=== PATIENT | female | born 1940 | race Caucasian/White ===

== ENCOUNTER 2017-01-24 14:34 | Emergency (ER) | payer OTHER, MEDICARE ==
[~2017-01-24] VITALS: Ht 180.3 cm; Wt 106.6 kg
[~2017-01-24 14:34] MED LIST: ACETAMINOPHEN-H1 TA2 PO; AMPICILLIN2 GM IV; ASPIRIN PO; BISACODYL5 M1 PO; COUMADIN2.5 M1 PO; COUMADIN5 M2 PO; CYANOCOBAL1000 MCG/2 IM; CYCLOBENZAPRINE5 M2 PO; DOCUSATE SODIU100 MG PO; FIBER GUMMIES1 EACH PO; FLEXERIL 10MG T10 MG PO; FUROSEMIDE20 M1 PO; GABAPENTIN600 M1 PO; HAIR, SKIN & N1 EACH PO; HYDROCODONE/ACE1 TA1 PO; LEXAPRO10 M1 PO; LEXAPRO20 M1 PO; LIDODERM 5% PAT1 PAT EXT; LISINOPRIL-HCTZ 10-1 PO; LISINOPRIL10 M1 PO; LOPRESSOR 25MG25 MG PO; MIRALAX119 GM PO; MIRALAX17 GM PO; MULTIVITAMIN1 TAB PO; MYRBETRIQ50 MG PO; NITROSTAT0.4 MG PO; OMEGA 3-6-9 11200 MG PO; OMEPRAZOLE20 M3 PO; OXYCODONE-ACETAMINOP PO; OXYCODONE5 M1 PO; PERCOCET 5-3251 EACH PO; PRAVACHOL40 M1 PO; PRAVASTATIN SOD40 MG PO; SENNA-TIME S T1 EACH PO; SYMBICORT 16010.2 GM INH; TOPROL XL25 M1 PO; TRAMADOL HCL50 M1 PO; TROSPIUM CHLORI20 M1 PO; ULTRAM50 M1 PO; VANCOMYCIN HC1000 MG IV; VITAMIN C1000 M2 PO; VITAMIN C500 M3 PO; [UNRECOGNIZED DRUG - OTHER] PO
--- NOTE | 2017-01-24 15:50 | ED MVC/FALL/TRAUMA COMPLAINT ---
History of Present Illness General Chief Complaint: Fall Stated Complaint: TRIP AND FALL, HIT HEAD, -LOC, +BLOOD THINNERS Source: patient Exam Limitations: no limitations Vital Signs & Intake/Output Vital Signs & Intake/Output Vital Signs Date Time Temp Pulse Resp B/P Pulse O2 O2 Flow FiO2 Ox Delivery Rate 01/24 1812 97.2 54 18 138/68 97 Room Air 01/24 1656 97.0 55 18 149/70 95 Room Air 01/24 1447 96.6 52 16 112/69 95 Room Air Allergies Coded Allergies: cetirizine (PER PT HAD A MIGRAINE 06/09/16) hydromorphone (DOUBLE VISION 06/09/16) Reconcile Medications Ascorbic Acid (Vitamin C) 1,000 MG TAB.CHEW 1 TAB PO DAILY SUPPLEMENT ( Reported) Budesonide/Formoterol Fumarate (Symbicort 160-4.5 Mcg Inhaler) 160 MCG-4.5 MCG/ ACTUATION HFA.AER.AD 2 PUF INH DAILY RESPIRATORY (Reported) Cyanocobalamin (Vitamin B-12) (Cyanocobalamin Injection) 1,000 MCG/ML VIAL 1 ML IM Q3-4W SUPPLEMENT (Reported) Escitalopram Oxalate (Lexapro) 20 MG TABLET 2 TAB PO DAILY DEPRESSION ( Reported) Ferrous Sulfate 325 MG (65 MG IRON) TABLET 1 TAB PO DAILY SUPPLEMENT ( Reported) Fish Oil/Borage/Flax/Om3,6,9#1 ([place] 3-6-9 1,200 MG Softgel) 1,200 MG CAPSULE 4 CAP PO QPM SUPPLEMENT (Reported) Furosemide 20 MG TABLET 1 TAB PO PRN DIURETIC (Reported) Gabapentin 300 MG CAPSULE 3 CAP PO QPM NERVE PAIN (Reported) Lisinopril 10 MG TABLET 1 TAB PO DAILY BP (Reported) Metoprolol Succ XL (Toprol XL) 25 MG TAB 1 TAB PO DAILY HEART (Reported) Multivitamin With Minerals (Hair, Skin & Nails) 1 EACH TABLET 1 TAB PO DAILY SUPPLEMENT (Reported) Omeprazole 20 MG TABLET.DR 1 TAB PO DAILY GI (Reported) Oxycodone HCl/Acetaminophen (Oxycodone-Acetaminophen 5-325) 5 MG-325 MG TABLET 1 TAB PO PRN PAIN (Reported) Pravastatin Sodium (Pravachol) 40 MG TABLET 1 TAB PO DAILY HYPERLIPIDEMIA ( Reported) Tramadol HCl (Unknown Strength) TABLET (Unknown Dose) PO PRN PAIN (Reported) Warfarin Sodium (Coumadin) 2.5 MG TABLET 1 TAB PO DAILY AFIB (Reported) Triage Note: PT FELL COMING OUT OF [place] AND HIT HER HEAD -LOC. PT STATESS HE ALSO HITHER LEFT HAND AND HER KNEES ARE SWOLLEN. PT HAS BRACE TO RIGHT KNEE Triage Nurses Notes Reviewed? yes Onset: Abrupt Duration: constant Timing: single episode today Severity: severe Severity Numbers: 7 Injuries/Fall Location: head, face, upper extremity, lower extremity Method of Injury: direct blow, fall Loss of Consciousness: no loss of consciousness HPI: Patient is a 76-year-old female with a past medical history of right knee pain and multiple right knee surgical intervention who presents to emergency room stating that today she was in her normal state of health patient was ambulating outside in the parking lot and subsequently fell on uneven pavement in which she struck the left side of her face to the ground resulting in a skin abrasion to the face and skin abrasion to the left hand. Patient denies any preceding episode of lightheaded sensation or dizziness. Denies any loss of consciousness. Patient was able to get up with the assistance of . Patient states that she did not have direct trauma to her right knee but due to her history of right knee pain her knee hurt worse after the event. No medications given prior to arrival. Denies any neck pain or back pain. Tetanus is up-to-date. Patient is on Coumadin (TERRA BULL) Past History Travel History Traveled to [place] past 21 day No Medical History Any Pertinent Medical History? see below for history Neurological: peripheral neuropathy EENT: NONE (Bleeding gums due to Coumadin) Cardiovascular: AFIB, CAD, hypertension, hyperlipidemia Respiratory: bronchitis Gastrointestinal: GERD Hepatic: NONE Renal: NONE Musculoskeletal: KNEE BRACE R BRANDO Psychiatric: NONE Endocrine: NONE Blood Disorders: anemia Cancer(s): NONE DRY FOLDER CLOTH/Reproductive: NONE History of MRSA: No History of VRE: No History of CDIFF: No Tetanus Vaccine: 03/30/15 Surgical History Surgical History: appendectomy, cholecystectomy, , hysterectomy, hernia knee replacement tendon repair Psychosocial History Who do you live with Spouse Services at Home None What is your primary language Senegalese Tobacco Use: Quit >30 days ago ETOH Use: occasional use Illicit Drug Use: denies illicit drug use Family History Family History, If Any: MOTHER FHx: lung cancer FATHER FH: diabetes mellitus SISTER FH: ALS (amyotrophic lateral sclerosis) Hx Contributory? No (TERRA BULL) Review of Systems Review of Systems Constitutional: Reports: no symptoms. Eyes: Reports: no symptoms. Ears, Nose, Throat, Mouth: Reports: no symptoms. Respiratory: Reports: no symptoms. Cardiovascular: Reports: no symptoms. Gastrointestinal/Abdominal: Reports: no symptoms. Genitourinary: Reports: no symptoms. Musculoskeletal: Reports: see HPI, joint pain. Skin: Reports: see HPI. Neurological/Psychological: Reports: see HPI, headache. All Other Systems: Reviewed and Negative (TERRA BULL) Physical Exam Physical Exam General Appearance: no apparent distress, obese Comments: HEENT: Normal EENT exam, extraocular motion intact, no nystagmus. Pupils equally round and reactive to light and accommodation. Nose is atraumatic. External auditory canal and Tympanic membranes clear. Pharynx normal. No swelling or edema. Neck: Supple, no lymphadenopathy, normal range of motion without pain or tenderness No central spinous tenderness Back: Nontender, no CVA tenderness. No central spinous tenderness Cardiovascular: Regular rate and rhythms no murmurs rubs or gallops, normal JVP Respiratory: Chest nontender. No respiratory distress.breath sounds clear to auscultation bilaterally Abdomen: Soft, nontender nondistended, no appreciable organomegaly. Normal bowel sounds. No ascites Extremity: Right knee generalized point tenderness noted, mild decreased active range of motion noted no signs of trauma Left hand noted skin abrasion to the thenar eminence full active range of motion noted with first digit Neuro: Alert oriented x3, motor sensory normal, cranial nerves II through XII grossly intact. Skin: No appreciable rash on exposed skin, skin is warm and dry. Psych: Mood and affect is normal, memory and judgment is normal. Diagram Head: 1) NOTED skin abrasions swelling and point tenderness no step-off deformity Core Measures ACS in differential dx? No Severe Sepsis Present: No Septic Shock Present: No (TERRA BULL) Progress Differential Diagnosis: abd injury, C/T/L spine injury, ext injury, ICH, pelvis injury, pnemothorax, spinal cord injury Plan of Care: Patient had no acute findings of imaging were patient was symptomatic from fall. Patient's right orbit was cleaned with peroxide water and bacitracin bandage was applied. On discharge patient looks well no apparent distress and will comply with discharge instructions and had no questions Comments: PATIENT: ELIUD BEYER PRESENT AGE: 76 PATIENT ACCOUNT NO: [id number] : 39 LOCATION: [facility] ORDERING PHYSICIAN: TERRA SAUER SERVICE DATE: 01/24/17 EXAM TYPE: RAD - XRY-KNEE COMPLETE RIGHT EXAMINATION: XR KNEE, RIGHT CLINICAL INFORMATION: Right knee pain following fall. COMPARISON: Plain films of the right knee 07/03/2016. TECHNIQUE: Four views of the right knee. FINDINGS: Redemonstrated is mechanical hardware related to right knee arthroplasty. No acute fracture or dislocation of the right knee is identified. There is a stable lucency along the inferior aspect of the tibial component of the arthroplasty, measuring approximately 4 mm. Redemonstrated is a fracture of the patella with the upper pole of the patella visualized anterior to the distal femur. There is minimal prepatellar soft tissue swelling. IMPRESSION: Stable postsurgical changes related to prior right knee arthroplasty. No immediate mechanical hardware complications. No acute fracture or dislocation of the right knee. Chronic fracture of the patella with distraction of the fracture fragments by approximately 4 cm. PATIENT: ELIUD BEYER PRESENT AGE: 76 PATIENT ACCOUNT NO: [id number] : 39 LOCATION: [facility] ORDERING PHYSICIAN: TERRA SAUER SERVICE DATE: 01/24/17 EXAM TYPE: CAT - CT CERV SPINE WO IV CONTRAST EXAMINATION: CT CERVICAL SPINE WITHOUT CONTRAST CLINICAL INFORMATION: Fall. Evaluate for cervical spine fracture. COMPARISON: None. TECHNIQUE: Multiple axial CT images of the cervical spine were obtained without intravenous contrast. 2-D coronal and sagittal reformatted images were obtained at the acquisition workstation. DLP: 1338 mGy-cm FINDINGS: Noncontrast CT of the cervical spine demonstrates moderate multilevel degenerative disc disease and severe multilevel facet arthrosis of the cervical spine. Vertebral body heights are grossly preserved. There is intervertebral disc space narrowing and there is multilevel anterolisthesis of the cervical spine. For instance, there is grade 1 anterolisthesis of C3 on C4 and of C4 on C5. No acute cervical spine fractures are identified. There is fusion of the bilateral facets of C2 and C3, likely loan representative of sequela of degenerative joint disease. The craniocervical and atlantoaxial articulations are intact. Prevertebral soft tissues are within normal limits. Evaluation of the individual levels demonstrates: C2-C3: Bilateral facet arthrosis and uncovertebral hypertrophy, without significant neuroforaminal narrowing or spinal canal stenosis. C3-C4: Uncovertebral hypertrophy and bilateral facet arthrosis, left greater than right, contribute to severe left-sided neuroforaminal narrowing. No significant right-sided neuroforaminal narrowing or spinal canal stenosis. C4-C5: Severe bilateral facet arthrosis and uncovertebral hypertrophy contributing to severe bilateral neuroforaminal narrowing. No significant spinal canal stenosis. C5-C6: Bilateral facet arthrosis and uncovertebral hypertrophy contributing to severe bilateral neuroforaminal narrowing. Mild spinal canal stenosis. C6-C7: Uncovertebral hypertrophy and bilateral facet arthrosis contribute to moderate to severe bilateral neuroforaminal narrowing and mild spinal canal stenosis. C7-T1: Uncovertebral hypertrophy and bilateral facet arthrosis contributing to mild bilateral neuroforaminal narrowing. No significant spinal canal stenosis. IMPRESSION: Multilevel degenerative disc disease and facet arthrosis of the cervical spine, as detailed above. No acute cervical spine fractures. Uncovertebral hypertrophy and bilateral facet arthrosis contribute to varying degrees of neuroforaminal narrowing and spinal canal stenosis, as detailed above. PATIENT: ELIUD BEYER PRESENT AGE: 76 PATIENT ACCOUNT NO: [id number] : 39 LOCATION: [facility] ORDERING PHYSICIAN: TERRA SAUER SERVICE DATE: 01/24/17 EXAM TYPE: CAT - CT HEAD WO IV CONTRAST EXAMINATION: CT HEAD WITHOUT CONTRAST CLINICAL INFORMATION: Fall. COMPARISON: CT head 09/22/2016 TECHNIQUE: Contiguous axial imaging was performed from the skull base to vertex without intravenous administration of contrast. Coronal reformatted images performed at CT scanner. FINDINGS: There is no evidence of acute intracranial hemorrhage or territorial infarction. No abnormal mass effect or midline shift is seen. [place] to white matter differentiation is well preserved. No extra-axial fluid collections are identified. There is atrophy with prominence of the ventricles and the sulci and hypodensity of the periventricular white matter due to chronic small vessel ischemic disease. There is vascular calcifications of the internal carotid arteries bilaterally. The osseous structures and soft tissues are normal. The mastoid air cells and visualized portions of the paranasal sinuses are well aerated. IMPRESSION: No acute intracranial pathology. DICTATED BY: FERNANDO ROMAN MD PATIENT: ELIUD BEYER PRESENT AGE: 76 PATIENT ACCOUNT NO: [id number] : 39 LOCATION: [facility] ORDERING PHYSICIAN: TERRA SAUER SERVICE DATE: 01/24/17 EXAM TYPE: CAT - CT MAXILLOFACIAL W/O CON EXAMINATION: CT MAXILLOFACIAL WITHOUT CONTRAST CLINICAL INFORMATION: Head injury following fall. Right orbital trauma. COMPARISON: None. TECHNIQUE: Multidetector helical imaging was performed in the axial plane with generation of coronal and sagittal reformatted images. DLP: 1338 mGy-cm FINDINGS: Minimal right periorbital soft tissue swelling. No acute maxillofacial fracture is identified. The lamina papyracea are intact. The bilateral globes and orbits appear unremarkable. No orbital floor or orbital roof fractures are identified and there is no significant intraconal or extraconal stranding. No retrobulbar hematoma is visualized. The ostiomeatal complexes are well aerated. The nasal passages are clear. The nasal septum is midline. The carotid canals are normally covered by bone. The ethmoid roofs are symmetric. No mandibular or maxillary fractures are identified. Evaluation of the bilateral temporomandibular joints demonstrates degenerative changes involving the bilateral temporomandibular joints with flattening of the left mandibular condyle. There is no appreciable dislocation of the bilateral temporomandibular joints. IMPRESSION: Minimal right periorbital soft tissue swelling. Otherwise, no acute maxillofacial fractures. (TERRA BULL) Departure Departure Disposition: HOME OR SELF CARE Condition: Stable Clinical Impression Primary Impression: Fall Secondary Impressions: Minor head trauma, Right knee pain, Skin abrasion Referrals: CECILIA HARDIN,AYANA Babcock (PCP/Family) Additional Instructions: As discussed continue using your knee brace for stability and support. Continue home medications as directed. Follow-up with your orthopedic doctor if symptoms still continue on Saturday. If symptoms worsen return to emergency room. Departure Forms: Customer Survey General Discharge Information (TERRA BULL) PA/GEAR MACHINE OPERATOR Co-Sign Statement Statement: ED Attending supervision documentation- [X] I saw and evaluated the patient. I have also reviewed all the pertinent lab results and diagnostic results. I agree with the findings and the plan of care as documented in the PA's/GEAR MACHINE OPERATOR's documentation. []X I have reviewed the ED Record and agree with the PA's/GEAR MACHINE OPERATOR's documentation. [] Additions or exceptions (if any) to the PAs/GEAR MACHINE OPERATOR's note and plan are summarized below: [] (MARIFER HARDIN,RAINER Babcock)
--- NOTE | 2017-01-24 17:07 | RADIOLOGY REPORT ---
EXAMINATION: XR KNEE, RIGHT CLINICAL INFORMATION: Right knee pain following fall. COMPARISON: Plain films of the right knee 07/03/2016. TECHNIQUE: Four views of the right knee. FINDINGS: Redemonstrated is mechanical hardware related to right knee arthroplasty. No acute fracture or dislocation of the right knee is identified. There is a stable lucency along the inferior aspect of the tibial component of the arthroplasty, measuring approximately 4 mm. Redemonstrated is a fracture of the patella with the upper pole of the patella visualized anterior to the distal femur. There is minimal prepatellar soft tissue swelling. IMPRESSION: Stable postsurgical changes related to prior right knee arthroplasty. No immediate mechanical hardware complications. No acute fracture or dislocation of the right knee. Chronic fracture of the patella with distraction of the fracture fragments by approximately 4 cm.
[2017-01-24] MEDS ORDERED: GABAPENTIN300 M2 PO (17:55)
[2017-01-24] MEDS ORDERED: FERROUS SULFAT325 M3 PO (17:56)
[2017-01-24] MEDS ORDERED: TRAMADOL HCL50 M1 PO (18:00)
[2017-01-24] MEDS ORDERED: SYMBICORT 16010.2 GM INH (18:00)
[2017-01-24] MEDS ORDERED: OXYCODONE-ACET1 EACH PO (18:00)
[2017-01-24] MEDS ORDERED: FUROSEMIDE20 M1 PO (18:01)
[2017-01-24 18:12] VITALS: BP 138/68
--- NOTE | 2017-01-24 18:24 | CT SCAN REPORT ---
EXAMINATION: CT CERVICAL SPINE WITHOUT CONTRAST CLINICAL INFORMATION: Fall. Evaluate for cervical spine fracture. COMPARISON: None. TECHNIQUE: Multiple axial CT images of the cervical spine were obtained without intravenous contrast. 2-D coronal and sagittal reformatted images were obtained at the acquisition workstation. DLP: 1338 mGy-cm FINDINGS: Noncontrast CT of the cervical spine demonstrates moderate multilevel degenerative disc disease and severe multilevel facet arthrosis of the cervical spine. Vertebral body heights are grossly preserved. There is intervertebral disc space narrowing and there is multilevel anterolisthesis of the cervical spine. For instance, there is grade 1 anterolisthesis of C3 on C4 and of C4 on C5. No acute cervical spine fractures are identified. There is fusion of the bilateral facets of C2 and C3, likely apprenticeship training representative of sequela of degenerative joint disease. The craniocervical and atlantoaxial articulations are intact. Prevertebral soft tissues are within normal limits. Evaluation of the individual levels demonstrates: C2-C3: Bilateral facet arthrosis and uncovertebral hypertrophy, without significant neuroforaminal narrowing or spinal canal stenosis. C3-C4: Uncovertebral hypertrophy and bilateral facet arthrosis, left greater than right, contribute to severe left-sided neuroforaminal narrowing. No significant right-sided neuroforaminal narrowing or spinal canal stenosis. C4-C5: Severe bilateral facet arthrosis and uncovertebral hypertrophy contributing to severe bilateral neuroforaminal narrowing. No significant spinal canal stenosis. C5-C6: Bilateral facet arthrosis and uncovertebral hypertrophy contributing to severe bilateral neuroforaminal narrowing. Mild spinal canal stenosis. C6-C7: Uncovertebral hypertrophy and bilateral facet arthrosis contribute to moderate to severe bilateral neuroforaminal narrowing and mild spinal canal stenosis. C7-T1: Uncovertebral hypertrophy and bilateral facet arthrosis contributing to mild bilateral neuroforaminal narrowing. No significant spinal canal stenosis. IMPRESSION: Multilevel degenerative disc disease and facet arthrosis of the cervical spine, as detailed above. No acute cervical spine fractures. Uncovertebral hypertrophy and bilateral facet arthrosis contribute to varying degrees of neuroforaminal narrowing and spinal canal stenosis, as detailed above.
--- NOTE | 2017-01-24 18:27 | CT SCAN REPORT ---
EXAMINATION: CT HEAD WITHOUT CONTRAST CLINICAL INFORMATION: Fall. COMPARISON: CT head 09/22/2016 TECHNIQUE: Contiguous axial imaging was performed from the skull base to vertex without intravenous administration of contrast. Coronal reformatted images performed at CT scanner. FINDINGS: There is no evidence of acute intracranial hemorrhage or territorial infarction. No abnormal mass effect or midline shift is seen. [place] to white matter differentiation is well preserved. No extra-axial fluid collections are identified. There is atrophy with prominence of the ventricles and the sulci and hypodensity of the periventricular white matter due to chronic small vessel ischemic disease. There is vascular calcifications of the internal carotid arteries bilaterally. The osseous structures and soft tissues are normal. The mastoid air cells and visualized portions of the paranasal sinuses are well aerated. IMPRESSION: No acute intracranial pathology.
--- NOTE | 2017-01-24 18:29 | CT SCAN REPORT ---
EXAMINATION: CT MAXILLOFACIAL WITHOUT CONTRAST CLINICAL INFORMATION: Head injury following fall. Right orbital trauma. COMPARISON: None. TECHNIQUE: Multidetector helical imaging was performed in the axial plane with generation of coronal and sagittal reformatted images. DLP: 1338 mGy-cm FINDINGS: Minimal right periorbital soft tissue swelling. No acute maxillofacial fracture is identified. The lamina papyracea are intact. The bilateral globes and orbits appear unremarkable. No orbital floor or orbital roof fractures are identified and there is no significant intraconal or extraconal stranding. No retrobulbar hematoma is visualized. The ostiomeatal complexes are well aerated. The nasal passages are clear. The nasal septum is midline. The carotid canals are normally covered by bone. The ethmoid roofs are symmetric. No mandibular or maxillary fractures are identified. Evaluation of the bilateral temporomandibular joints demonstrates degenerative changes involving the bilateral temporomandibular joints with flattening of the left mandibular condyle. There is no appreciable dislocation of the bilateral temporomandibular joints. IMPRESSION: Minimal right periorbital soft tissue swelling. Otherwise, no acute maxillofacial fractures.
== END 2017-01-24 19:10 ==
LOC: ERH 14:34
DX: S09.90XA Unspecified injury of head, initial encounter (principal); S00.81XA Abrasion of other part of head, initial encounter; S60.512A Abrasion of left hand, initial encounter; M25.561 Pain in right knee; W19.XXXA Unspecified fall, initial encounter; Y92.481 Parking lot as the place of occurrence of the external cause
CPT/HCPCS: 73562-RT